=== PATIENT | female | born 1965 | race Caucasian/White ===

== ENCOUNTER 2017-08-17 21:30 | Emergency (ER) | payer BC ==
[~2017-08-17] VITALS: Ht 162.6 cm; Wt 166.9 kg
--- NOTE | 2017-08-17 21:51 | NUR ---
PT AMBULATORY TO ER BED 6. PT BIBSELF C/O SOB X 6 HOURS AFTER CLEANING OUT BIRD CAGE. PT PLACED IN GOWN AND ON TOBACCO BUYER. VSS/RESP EVEN UNLABORED/NAD NOTED/SKIN WARM AND DRY/DENIES N-V-D/ AFEBRILE/AOX4. AWAITING MD KRAUS.
--- NOTE | 2017-08-17 23:10 | NUR ---
XRAY AT BEDSIDE.
--- NOTE | 2017-08-17 23:16 | NUR ---
LAB AT BEDSIDE FOR A DRAW.
[2017-08-17 23:27] LABS: BASOPHILS % (AUTO) 0.3 % (0.0-2.0); EOSINOPHILS % (AUTO) 0.2 % (0.0-6.0); HEMATOCRIT 45 % (33-45); HEMOGLOBIN 14.4 g/dL (11.5-14.8); LYMPHOCYTES # (AUTO) 0.7 /CMM (0.8-4.8); LYMPHOCYTES % (AUTO) 4.1 % (20.0-44.0); MEAN CORPUSCULAR HEMOGLOBIN 26 PG (26.0-33.0); MEAN CORPUSCULAR HGB CONC 32 g/dl (31.0-36.0); MEAN CORPUSCULAR VOLUME 81 fL (82-100); MONOCYTES # (AUTO) 0.2 /CMM (0.1-1.30); MONOCYTES % (AUTO) 0.9 % (2.0-12.0); NEUTROPHILS # (AUTO) 16.3 /CMM (1.8-8.9); NEUTROPHILS % (AUTO) 94.5 % (43.0-81.0); PLATELET COUNT (AUTO) 245 /CMM (150-450); RDW COEFFICIENT OF VARIATION 16.9 (11.5-15.0); RED BLOOD CELL COUNT(AUTO) 5.51 MIL/uL (4.0-5.2); WHITE BLOOD COUNT (AUTO) 17.3 K/uL (4.3-11.0)
[2017-08-17 23:44] LABS: CALCIUM, SERUM 9.2 mg/dL (8.5-10.1); CARBON DIOXIDE 28 mmol/L (21-32); CHLORIDE 102 mmol/L (98-107); CREATININE 0.9 mg/dL (0.6-1.3); GLUCOSE 133 mg/dL (74-106); POTASSIUM 4.4 mmol/L (3.5-5.1); SODIUM SERUM 138 mmol/L (136-145); UREA NITROGEN, BLOOD 15 mg/dL (7-18)
[2017-08-17 23:50] LABS: TROPONIN I < 0.017 ng/mL (0.00-0.056)
[2017-08-17 23:57] LABS: B-TYPE NATRIURETIC PEPTIDE 108 PG/ML (0-125)
[2017-08-18 00:19] LABS: INR 0.92 (0.87-1.13)
[2017-08-18 01:18] LABS: BAND % (MANUAL) 3 % (0.0-5.0); EOSINOPHILS % (MANUAL) 2 % (0-4); LYMPHOCYTES % (MANUAL) 5 % (16-48); MONOCYTES % (MANUAL) 1 % (0-11.0); NEUTROPHILS % (MANUAL) 89 (42-76)
--- NOTE | 2017-08-18 01:35 | NUR ---
18G IV TO R AC X 1 ATTEMPT USING ASEPTIC TECH, IV FLUSHES EASILY WITH NS. NO S/S INFILTRATION.
--- NOTE | 2017-08-18 01:46 | NUR ---
CT CALLED TO PICKUP PT.
[2017-08-18] MEDS ORDERED: IV NS 0.9% 100 ML IV ONE (01:58)
[2017-08-18] MEDS ORDERED: IOHEXOL-350 100 ML VIAL IV ONE (01:58)
--- NOTE | 2017-08-18 02:15 | NUR ---
PT TO CT VIA STRETCHER. VSS.
--- NOTE | 2017-08-18 02:29 | NUR ---
PT BACK FROM CT.
[2017-08-18] MEDS ORDERED: LEVOFLOXACIN (750 MG) 750 MG TABLET PO STA (04:04)
[2017-08-18] MEDS ORDERED: LEVOFLOXACIN (750 MG) 750 MG TABLET ONE (04:19)
--- NOTE | 2017-08-18 04:22 | NUR ---
IV removed. Catheter intact and site benign. Pressure and 4x4 applied to site. No bleeding noted. Patient discharged to home in stable condition. Written and verbal after care instructions given. Patient verbalizes understanding of instruction. Patient ambulatory with a steady gait.
[2017-08-18 04:23] VITALS: BP 138/84
== END 2017-08-18 04:24 | disposition home or self-care (01) ==
LOC: ER 21:32
DX: J18.9 Pneumonia, unspecified organism (principal); Z88.0 Allergy status to penicillin
CPT/HCPCS: 36415; 71045; 71275; 80048; 83880; 84484; 85025; 85378; 85730; 99285; A4606; J7030; Q9967; Z7610

== ENCOUNTER 2017-09-11 11:42 | Emergency (ER) | payer BC ==
[~2017-09-11] VITALS: Ht 162.6 cm; Wt 166.9 kg
--- NOTE | 2017-09-11 11:55 | NUR ---
PRESENTS TO ER C/O SOB X 3 DAYS. PT WAS SENT BY PMD FOR HYPOXIA O2 SAT LOW 80'S AT PMD'S OFFICE. PATIENT IS A/O X 4. BREATHING EVEN AND UNLABORED. NO SOB, NO DISTRESS. VITALS STABLE. PATIENT PLACED ON 3L OXYGEN VIA NC. SAFETY AND COMFORT MEASURES IN PLACE. AWAITING MD ORDERS.
--- NOTE | 2017-09-11 12:24 | NUR ---
NEW IV STARTED ON RAC, 20G, BLOOD DRAWN AND SENT TO LAB. INFLUENZA SWAB ALSO SENT TO LAB.
[2017-09-11 12:30] LABS: BASOPHILS % (AUTO) 0.2 % (0.0-2.0); EOSINOPHILS # (AUTO) 0.3 /CMM (0.0-0.7); HEMATOCRIT 40 % (33-45); HEMOGLOBIN 12.9 g/dL (11.5-14.8); LYMPHOCYTES # (AUTO) 1.3 /CMM (0.8-4.8); LYMPHOCYTES % (AUTO) 14.8 % (20.0-44.0); MEAN CORPUSCULAR HEMOGLOBIN 26 PG (26.0-33.0); MEAN CORPUSCULAR HGB CONC 33 g/dl (31.0-36.0); MEAN CORPUSCULAR VOLUME 79 fL (82-100); MONOCYTES # (AUTO) 0.6 /CMM (0.1-1.30); MONOCYTES % (AUTO) 7.2 % (2.0-12.0); NEUTROPHILS # (AUTO) 6.5 /CMM (1.8-8.9); NEUTROPHILS % (AUTO) 74.8 % (43.0-81.0); PLATELET COUNT (AUTO) 263 /CMM (150-450); RDW COEFFICIENT OF VARIATION 15.8 (11.5-15.0); RED BLOOD CELL COUNT(AUTO) 5.05 MIL/uL (4.0-5.2); WHITE BLOOD COUNT (AUTO) 8.7 K/uL (4.3-11.0)
[2017-09-11] MEDS ORDERED: IPRATROPIUM NEB FS 0.5 MG/2.5 ML AMPUL.NEB NEB ONE (12:30)
[2017-09-11] MEDS ORDERED: ALBUTEROL FS 2.5 MG/3 ML VIAL.NEB CONTNEB ONE (12:30)
[2017-09-11] MEDS ORDERED: LEVOFLOXACIN 750 MG /D5W 150ML PIGGYBACK IV ONE (12:30)
[2017-09-11 12:39] LABS: CALCIUM, SERUM 8.9 mg/dL (8.5-10.1); CREATININE 0.7 mg/dL (0.6-1.3); POTASSIUM 3.8 mmol/L (3.5-5.1)
[2017-09-11] MEDS ORDERED: LEVOFLOXACIN 750 MG /D5W 150ML 150 ML IV ONE (12:48)
[2017-09-11 13:03] LABS: ABG BASE EXCESS 5.6 mmol/L; ABG OXYGEN SATURATION 92.3 % (92.0-98.5); ABG PCO2 44.7 mmHg (35.0-45.0); ABG PO2 65.1 mmHg (75.0-100.0); AaDO2 31.1 mmHg; COHb 1.2 % (0.5-1.5); MetHb 0.6 % (0.0-1.5); O2Hb 90.6 % (94.0-97.0); SITE, ABG Left Radial; VENT MODE, BG ROOM AIR
--- NOTE | 2017-09-11 13:04 | NUR ---
RT NOTE: ROOM AIR ABG DRAWN AND RESULTS REPORTED TO NURSE(MARTINA/IZABELA).
[2017-09-11] MEDS ORDERED: ALBUTEROL FS 2.5 MG/0.5 ML VIAL.NEB ONE (13:29)
[2017-09-11] MEDS ORDERED: IPRATROPIUM NEB FS 0.5 MG/2.5 ML AMPUL.NEB ONE (13:29)
--- NOTE | 2017-09-11 14:48 | NUR ---
Patient discharged to home in stable condition. Written and verbal after care instructions along with Rx given. Patient verbalizes understanding of instruction.IV removed. Catheter intact and site benign. Pressure and 4x4 applied to site. No bleeding noted. VSS upon discharge. Pt ambulated with steady gait out of ER.
[2017-09-11 14:54] VITALS: BP 142/91
== END 2017-09-11 14:55 | disposition home or self-care (01) ==
LOC: ER 11:44
DX: J45.909 Unspecified asthma, uncomplicated (principal); E66.01 Morbid (severe) obesity due to excess calories; I47.1 Supraventricular tachycardia; R09.02 Hypoxemia; Z88.0 Allergy status to penicillin
CPT/HCPCS: 36415; 36600; 71045-TC; 80048-TC; 82803-TC; 83605-TC; 83880; 85025-TC; 87040-TC; 87400; A4606; J1956; Z7610

== ENCOUNTER 2017-11-10 11:44 | Emergency (ER) | payer BC ==
[~2017-11-10] VITALS: Ht 167.6 cm; Wt 180.2 kg
[2017-11-10] MEDS ORDERED: IV NS 0.9% 500 ML BAG IV ONE (12:00)
--- NOTE | 2017-11-10 12:00 | NUR ---
PATIENT TO ED DUE TO CHILLS SP TAKING ADVAIR. PATIENT IS AAO4. APPEARS IN NO DISTRESS. NO SOB AT THIS TIME. DENIES CHEST PAIN. SKIN IS WARM TO TOUCH AND NON DIAPHORETIC. PT IS AFEBRILE. VSS
--- NOTE | 2017-11-10 12:02 | NUR ---
DROSOPHERE OPERATOR AT BEDSIDE
--- NOTE | 2017-11-10 12:06 | NUR ---
EKG IN PROGRESS
[2017-11-10 12:09] LABS: BASOPHILS % (AUTO) 0.4 % (0.0-2.0); EOSINOPHILS % (AUTO) 1.7 % (0.0-6.0); HEMATOCRIT 39 % (33-45); HEMOGLOBIN 12.5 g/dL (11.5-14.8); LYMPHOCYTES # (AUTO) 0.9 /CMM (0.8-4.8); LYMPHOCYTES % (AUTO) 11.3 % (20.0-44.0); MEAN CORPUSCULAR HGB CONC 32 g/dl (31.0-36.0); MEAN CORPUSCULAR VOLUME 77 fL (82-100); MONOCYTES # (AUTO) 0.5 /CMM (0.1-1.30); MONOCYTES % (AUTO) 6.2 % (2.0-12.0); NEUTROPHILS # (AUTO) 6.2 /CMM (1.8-8.9); NEUTROPHILS % (AUTO) 80.4 % (43.0-81.0); PLATELET COUNT (AUTO) 268 /CMM (150-450); RDW COEFFICIENT OF VARIATION 16.2 (11.5-15.0); RED BLOOD CELL COUNT(AUTO) 5.13 MIL/uL (4.0-5.2); WHITE BLOOD COUNT (AUTO) 7.7 K/uL (4.3-11.0)
[2017-11-10 12:39] LABS: CALCIUM, SERUM 8.7 mg/dL (8.5-10.1); CARBON DIOXIDE 34 mmol/L (21-32); CHLORIDE 101 mmol/L (98-107); CREATININE 0.7 mg/dL (0.6-1.3); GLUCOSE 106 mg/dL (74-106); SODIUM SERUM 136 mmol/L (136-145); UREA NITROGEN, BLOOD 17 mg/dL (7-18)
[2017-11-10 12:48] LABS: TROPONIN I < 0.017 ng/mL (0.00-0.056)
[2017-11-10 13:15] VITALS: BP 130/88
--- NOTE | 2017-11-10 13:16 | NUR ---
IV removed. Catheter intact and site benign. Pressure and 4x4 applied to site. No bleeding noted.Patient discharged to home in stable condition. Written and verbal after care instructions given. Patient verbalizes understanding of instruction.
== END 2017-11-10 13:17 | disposition home or self-care (01) ==
LOC: ER 11:49
DX: R06.02 Shortness of breath (principal); R53.1 Weakness; K21.9 Gastro-esophageal reflux disease without esophagitis; I47.1 Supraventricular tachycardia; Z88.0 Allergy status to penicillin
CPT/HCPCS: 36415; 71045-TC; 80048-TC; 84484-TC; 85025-TC; A4606; J7040; Z7610

== ENCOUNTER 2018-06-27 14:04 | Emergency (ER) | payer BC ==
[~2018-06-27] VITALS: Ht 162.6 cm; Wt 183.7 kg
--- NOTE | 2018-06-27 14:15 | NUR ---
PT BIB SELF C/O O2SAT AT HOME WAS LOW, ON HOME O2 AND CPAP FOR SLEEP APNEA, PT IS AAOX4, NOT IN REPIRATORY DISTRESS, V/S STABLE, KEPT RESTED AND COMFORTABLE.
--- NOTE | 2018-06-27 15:05 | NUR ---
LABS DRAWNED AND SENT TO LAB.
[2018-06-27 15:18] LABS: BASOPHILS # (AUTO) 0.1 /CMM (0.0-0.2); BASOPHILS % (AUTO) 0.5 % (0.0-2.0); EOSINOPHILS % (AUTO) 1.3 % (0.0-6.0); HEMATOCRIT 39 % (33-45); HEMOGLOBIN 12.7 g/dL (11.5-14.8); LYMPHOCYTES # (AUTO) 1.2 /CMM (0.8-4.8); LYMPHOCYTES % (AUTO) 11.6 % (20.0-44.0); MEAN CORPUSCULAR HGB CONC 32 g/dl (31.0-36.0); MEAN CORPUSCULAR VOLUME 82 fL (82-100); MONOCYTES # (AUTO) 0.8 /CMM (0.1-1.30); NEUTROPHILS # (AUTO) 8.1 /CMM (1.8-8.9); NEUTROPHILS % (AUTO) 78.6 % (43.0-81.0); PLATELET COUNT (AUTO) 214 /CMM (150-450); RED BLOOD CELL COUNT(AUTO) 4.78 MIL/uL (4.0-5.2); WHITE BLOOD COUNT (AUTO) 10.3 K/uL (4.3-11.0)
--- NOTE | 2018-06-27 15:19 | NUR ---
TECH AT BED SIDE FOR XRAY.
[2018-06-27 15:30] LABS: CALCIUM, SERUM 9.1 mg/dL (8.5-10.1); CARBON DIOXIDE 31 mmol/L (21-32); CHLORIDE 101 mmol/L (98-107); CREATININE 0.7 mg/dL (0.6-1.3); GLUCOSE 120 mg/dL (74-106); POTASSIUM 4.3 mmol/L (3.5-5.1); SODIUM SERUM 139 mmol/L (136-145); UREA NITROGEN, BLOOD 12 mg/dL (7-18)
[2018-06-27 15:42] LABS: B-TYPE NATRIURETIC PEPTIDE 48 PG/ML (0-125)
--- NOTE | 2018-06-27 17:53 | NUR ---
IV removed. Catheter intact and site benign. Pressure and 4x4 applied to site. No bleeding noted. Patient discharged to home in stable condition. Written and verbal after care instructions given. Patient verbalizes understanding of instruction.
[2018-06-27 17:54] VITALS: BP 132/78
== END 2018-06-27 18:38 | disposition home or self-care (01) ==
LOC: ER 14:07
DX: R06.02 Shortness of breath (principal); R11.0 Nausea; R42 Dizziness and giddiness; K21.9 Gastro-esophageal reflux disease without esophagitis; I47.1 Supraventricular tachycardia; G47.30 Sleep apnea, unspecified; Z88.0 Allergy status to penicillin
CPT/HCPCS: 36415; 71045; 80048; 83880; 84484; 85025; 87040 ×2; 87804 ×2; 93005; 99284; A4606; Z7610; 87400